=== PATIENT | female | born 1950 | race Caucasian/White ===

== ENCOUNTER 2017-03-21 18:56 | Emergency (ER) | payer BC, OTHER ==
[2017-03-21] MEDS ORDERED: ASPIRIN 81 MG TAB.CHEW PO ONE (19:19)
[2017-03-21] MEDS ORDERED: BELLADONNA ALKALOIDS/PHENOBARB 60 ML BTL PO ONE (19:20)
[2017-03-21] MEDS ORDERED: MAG HYDROX/ALUMINUM HYD/SIMETH 30 ML UDC PO ONE (19:20)
[2017-03-21] MEDS ORDERED: LIDOCAINE HCL 20 ML UDC PO ONE (19:20)
[2017-03-21] MEDS ORDERED: ASPIRIN 81 MG TAB.CHEW ONE (19:29)
[2017-03-21 19:33] LABS: Hematocrit 40.6 % (37.0-47.0); Hemoglobin 13.7 gm/dL (12.5-16.0); Mean Cell Volume 92.9 fl (78-100); Mean Corpuscular Hemoglobin 31.4 pg (27-31); Mean Corpuscular Hgb Conc 33.7 g/dl (32-36); Mean Platelet Volume 10.1 fl (6.0-9.5); Neutrophil # 4.6 K/mm3 (1.3-6.0); Neutrophil % 52.1 % (42-75.0); Platelet Count 272 K/mm3 (150-450); Red Blood Count 4.37 M/mm3 (4.2-5.4); Red Cell Distribution Width 13.7 % (11.5-14.0); White Blood Count 8.9 K/mm3 (4.0-10.5)
--- NOTE | 2017-03-21 19:39 | ERNOTE ---
<Osmany Brannon - Last Filed: 03/21/17 19:45> Chest Pain/Cardiac HPI Chief Complaint: Chest Pain Time Seen by Provider: 03/21/17 19:16 Source: patient Exam Limitations: no limitations Immunizations: IMMUNIZATION HX Immunizations Up to Date No History of Influenza Vaccine No Hx Pneumococcal Vaccination No Allergies/Adverse Reactions: Allergies No Known Allergies Allergy (Verified 11/08/13 12:01) Home Medications: HOME MEDICATIONS glipiZIDE [Glucotrol] 10 mg PO DAILY 07/06/12 [Last Taken Unknown] metFORMIN HCL [Glumetza] 1,000 mg PO BID 07/06/12 [Last Taken Unknown] Atorvastatin Calcium [Lipitor] 20 mg PO DAILY 11/08/13 [Last Taken Unknown] Insulin Glargine,Hum.rec.anlog [Lantus Solostar] 18 unit SQ DAILY 11/08/13 [ Last Taken Unknown] Lisinopril 10 mg PO DAILY 11/08/13 [Last Taken Unknown] Metoprolol Succinate [Toprol Xl] 50 mg PO DAILY 11/08/13 [Last Taken Unknown] Aspirin [Aspirin EC] 325 mg PO DAILY 03/21/17 [Last Taken Unknown] Potassium 99 mg PO DAILY 03/21/17 [Last Taken Unknown] Narrative: Patient states that she has been having some lower neck pain for the past 24 hours. He states he feels as though it's heartburn-like pain however as she has a history of coronary artery disease she wanted to come in and get checked out to make sure everything was fine. Patient denies any shortness of breath, diaphoresis, neck, jaw or arm pain. She states this is remarkably different from when she had to have a cardiac stent some years ago. Timing: constant Severity/Quality: mild Location: other - upper esophageal Chest Pain Radiation: no radiation Activities at Onset: none Modifying Factors - Improves: Present: nothing Modifying Factors - Worsens: Present: nothing Nitro Today/Relief: no nitro taken today Aspirin Treatment Today: 81 mg x 4, provided by ED Associated Symptoms: Present: denies symptoms Prior Chest Pain/Cardiac Workup: Reports: prior chest pain Review of Systems - Review of Systems Constitutional: Present: See HPI EYE: Present: no symptoms reported ENT: Present: no symptoms reported Respiratory: Present: no symptoms reported Cardiology: Present: chest pain - however the pain is at the sternal notch and is burning in nature Gastrointestinal/Abdominal: Present: no symptoms reported Genitourinary: Present: no symptoms reported Musculoskeletal: Present: no symptoms reported Skin: Present: no symptoms reported Neurological: Present: no symptoms reported Endocrine: Present: no symptoms reported Hematologic/Lymphatic: Present: no symptoms reported Psych: Present: no symptoms reported - Patient's Past Medical History Patient History - Medical: Diabetes Type 2 Patient History - Cardiac/Respiratory: Myocardial Infarction Patient History - Cancer: No Hx of Cancer Patient History - Surgical Procedures: Other Additional Info: Patient has had a PTCA with stent placement Patient History - Other: None - Social History Living Situations: home Abuse History: No History of abuse Psych History: No pertinent hx Smoking Status: Former smoker Have you smoked in the past 12 months: No Do you dip or chew tobacco: No Alcohol Use: none Drug Use: none - Immunizations Immunizations Up to Date: No Hx Pneumococcal Vaccination: No History of Influenza Vaccine: No Physical Exam - Physical Exam General Appearance: Present: wd/wn, alert, mild distress Head Exam: Present: normal inspection, no evidence of injury Eye Exam: Normal inspection: bilateral, PERRL: bilateral Ears, Nose, Throat: Present: normal ENT inspection, H, normal pharynx Neck: Present: normal inspection, nontender Respiratory: Present: no respiratory distress, normal breath sounds, no accessory muscle use, chest nontender, lungs clear Cardiovascular/Chest: Present: regular rate, rhythm, no murmur, normal peripheral pulses Gastrointestinal/Abdominal: Present: normal bowel sounds, nontender, nondistended, soft, no organomegaly Rectal Exam: Present: deferred Back Exam: Present: normal inspection, normal range of motion Extremity Exam: Present: normal inspection, non-tender, no edema, normal range of motion Neurological Exam: Present: alert, oriented, normal mood/affect Skin Exam: Present: normal color, warm/dry Lymphatic Exam: Present: no adenopathy ED Progress - Results and Orders Patient's Lab Results:: I have reviewed the patient's lab results. - Vital Signs Patient's Vital Signs:: I have reviewed the patient's vital signs. Vital Signs: Vital Signs 03/21/17 19:04 Temperature 36.5 C Pulse Rate 92 Respiratory 20 Rate Blood Pressure 168/79 O2 Sat by Pulse 95 Oximetry - EKG EKG: NSR, RBBB - Progress/Reassessment Chief Complaint: Chest Pain - Transfer of Care Physician Sign Out: Osmany Brannon Receiving Physician: Eric Dorman Plan - Plan Plan: Patient was given 4 baby aspirin as well as a GI cocktail with . I agree a 12 point with the patient that this could very well be esophagitis, however she does have a history of coronary artery disease so 4 baby aspirin given as well as a GI cocktail. Further disposition of the patient will be managed by Dr. Dorman and she is discharged into his care in stable condition. Departure - Departure Clinical Impression: Diabetes mellitus type 2, insulin dependent Chest pain Qualifiers: Chest pain type: unspecified Qualified Code(s): R07.9 - Chest pain, unspecified Disposition: Home Follow Up Needed Condition: Good Instructions: Hyperglycemia, [id number] Additional Instructions: Begin taking your lantus again. Test your blood sugar at least twice a day and keep a log of the values. See your primary care doctor as soon as possible. Referrals: Feli Conner MD [Primary Care Provider] - <Eric Dorman - Last Filed: 03/22/17 23:35> Chest Pain/Cardiac HPI Immunizations: IMMUNIZATION HX Immunizations Up to Date No History of Influenza Vaccine No Hx Pneumococcal Vaccination No ED Progress - Results and Orders Patient's Lab Results:: I have reviewed the patient's lab results. Results and Orders: Laboratory Tests 03/21/17 03/21/17 19:32 19:32 WBC 8.9 Hgb 13.7 Hct 40.6 Plt Count 272 Sodium 140 Potassium 4.1 Chloride 103 Carbon Dioxide 25.9 BUN 15 Creatinine 0.91 Est GFR (Non-Af Amer) 66 D Random Glucose 442 H Calcium 8.8 Magnesium 1.7 Total Bilirubin 0.2 AST 12 ALT 29 Alkaline Phosphatase 87 Troponin I Less than 0.017 Total Protein 6.6 Albumin 3.4 - Vital Signs Patient's Vital Signs:: I have reviewed the patient's vital signs. Vital Signs: Vital Signs 03/21/17 03/21/17 03/21/17 19:04 19:24 19:39 Temperature 36.5 C Pulse Rate 92 87 87 Respiratory 20 16 20 Rate Blood Pressure 168/79 152/67 153/72 O2 Sat by Pulse 95 94 96 Oximetry 03/21/17 20:03 Temperature Pulse Rate 81 Respiratory 21 H Rate Blood Pressure 155/73 O2 Sat by Pulse 93 Oximetry - X-Ray X-Ray #1 X-Ray: chest Interpretation: Reviewed by me X-ray Comments: No acute processes - Progress/Reassessment Progress Note-Subjective: 03/21/17 20:20 Pt feeling much better after GI coctail. discussed normal labs except elevated blood sugar. Pt will keep better track of her blood sugar and will take her insulin regularly
[2017-03-21 19:53] LABS: ALT 29 U/L (19-67); AST 12 U/L (0-48); Albumin * 3.4 gm/dl (3.4-5.0); Alkaline Phosphatase * 87 U/L (50-170); Anion Gap 15.2 mmol/L (6.8-13.8); BUN/Creatinine Ratio 16.5 (9.0-21.6); Bilirubin, Total 0.2 mg/dL (0.0-1.1); Blood Urea Nitrogen 15 mg/dL (3-23); Calcium * 8.8 mg/dL (7.9-10.9); Carbon Dioxide 25.9 mmol/L (24-32.6); Chloride 103 mmol/L (97-106); Glucose * 442 mg/dL (70-110); Magnesium 1.7 mg/dL (1.2-2.8); Potassium 4.1 mmol/L (3.4-4.6); Sodium 140 mmol/L (132-142); Total Protein 6.6 gm/dL (6.2-8.2); Troponin I Less than 0.017 ng/ml (0.00-0.10)
[2017-03-21 20:43] VITALS: BP 147/64
[2017-03-22 16:24] LABS: Hemoglobin A1C 11.7 % (4.00-6.0)
== END 2017-03-21 20:48 | disposition home or self-care (01) ==
LOC: ER 18:56
DX: E11.8 Type 2 diabetes mellitus with unspecified complications (principal); Z79.4 Long term (current) use of insulin; R07.9 Chest pain, unspecified; I25.2 Old myocardial infarction